=== PATIENT | female | born 1970 | race Caucasian/White ===

== ENCOUNTER 2017-12-20 12:42 | Day surgery (SDC) | payer BC ==
[2017-12-20] MEDS ORDERED: PROPOFOL 10 MG/ML VIAL IV ONE (12:43)
[2017-12-20] MEDS ORDERED: LIDOCAINE 2% MDV (20MG/ML) 20ML VIAL IV ONE (12:43)
--- NOTE | 2017-12-21 12:30 | Operative Note ---
DATE OF SURGERY: 12/20/2017 OPERATION: COLONOSCOPY to the cecum and terminal ileum. INDICATION: Recent episode of right lower quadrant pain with abnormal CT scan suggesting possible wall thickening of the terminal ileum (equivocal thickening). Colonoscopy is performed at this time for further evaluation. Clinically the patient is improved. The only pain she notices recently was with the colon prep taken last night. ANESTHESIA: Intravenous sedation was administered by the department of anesthesiology and included Diprivan titrated to effect. PROCEDURE: Following informed consent from this alert individual including a discussion of the risks and benefits of the procedure and an opportunity for the patient to ask questions, the patient was in the left lateral decubitus position. A digital rectal examination was performed. No abnormalities were noted. Following this, the Olympus [id number] video colonoscope was inserted into the rectum without resistance. The rectal mucosa had a normal appearance with normal folds and distensibility. The colonoscope was advanced up through the breakfast to the level of the cecum without much difficulty. Throughout the bowel the mucosa appeared normal, the folds were normal, and the bowel was fairly well distensible. Abdominal pressure support was applied to facilitate reaching the cecum. The terminal ileum was then cannulated for approximately 20 cm and found to be completely normal. From the base of the cecum, the colonoscope was then withdrawn. The colon preparation was good. Scattered diverticula were noted in the left colon and a few in the right colon as well but no evidence of diverticulitis. There were no polyps noted and no inflammatory changes appreciated throughout the mucosa. The colonoscope was then drawn back into the rectum where retroflexion accomplished following air insufflation failed to demonstrate any abnormalities. The endoscope was straightened and removed. The patient tolerated the procedure well and was returned to the recovery area in stable condition. IMPRESSION: 1. [place] diverticulosis. 2. Otherwise normal colon and terminal ileum. RECOMMENDATIONS: The patient will be following up with Paul Grey DO. I did recommend screening evaluation at age 52. As always, thank you for allowing me to participate in the care of your patient. CC: DO BASIM Osman
== END 2017-12-20 14:46 | disposition home or self-care (01) ==
LOC: HOP 12:42
PROVIDERS: ATTEND Internal Medicine Gastroenterology
DX: R10.31 Right lower quadrant pain (principal); R94.8 Abnormal results of function studies of other organs and systems; G43.909 Migraine, unspecified, not intractable, without status migrainosus; K57.30 Diverticulosis of large intestine without perforation or abscess without bleeding
CPT/HCPCS: 81025